=== PATIENT | female | born 1945 | race Caucasian/White ===

== ENCOUNTER → 2017-01-11 | Outpatient (CLI) | payer OTHER ==
--- NOTE | ~2017-01-11 | BD1 ---
[facility] A Service of [facility] RADIOLOGY TEXT RESULTS PATIENT: FILI RODAS LOCATION: [facility] : 45 UNIT #: [id number] AGE: [address]: Maria E Robertson MD SEX: F ORDER DR: [id number] [facility] [address] [facility] [place], [place] [address] [id number] O MR#: [id number] Acc #: [id number] NAME: FILI RODAS : 1945 SEX: F STUDY DATE/TIME: 01/11/2017 11:37 UNIT: [facility] ROOM: STUDY DESCRIPTION: BD Dexa Bone Dens 1+ Site Attending Physician: Maria E Robertson M.D. Referring Physician: Maria E Robertson M.D. Ordering Physician: Maria E Robertson M.D. Primary Care Physician: Maria E Robertson M.D. MEDICAL IMAGING REPORT This report is preliminary unless electronic signature is present EXAM DEXA scan 01/11/2017 HISTORY Status post menopause with no hormone replacement therapy. Osteopenia. Hypertension with blood pressure medication for 4 years. Thyroid medication levothyroxine use for 4 years. Family history of osteoporosis in mother. FINDINGS Bone mineral density in the lumbar spine from L1-L4 was 1.064 g/cm2 which is 0.2 standard deviations above the mean when compared to the young adult reference population which is within the range of normal. This is 2.3 standard deviations above the mean when compared to the age-matched population. Compared with 07/30/2013 there has been an increase in bone mineral density in the lumbar spine of 1.5%. Bone mineral density in the left femoral neck was 0.773 g/cm2 which is 0.7 standard deviations below the mean when compared to the young adult reference population which is within the range of normal. This is 1.2 standard deviations above the mean when compared to the age-matched population. Compared with 07/30/2013 there has been a decrease in bone mineral density in the left hip of 2.4%. Bone mineral density in the distal left forearm was 0.564 g per centimeter square which is 0.3 standard deviations below the mean when compared to the reference population which is within the range of normal. This is 1.8 standard deviations above the mean when compared to the age-matched population. Compared with 07/30/2013 there has been a decrease in bone mineral density in the left forearm of 6%. IMPRESSION Bone mineral density in the lumbar spine. The left hip and the left forearm within the range of normal. Compared with 07/30/2013 there has been an increase in bone mineral density in the lumbar spine and a decrease in bone mineral density in the left hip and left forearm. [facility] A Service of [facility] RADIOLOGY TEXT RESULTS PATIENT: FILI RODAS LOCATION: [facility] #: [id number] : 45 UNIT #: [id number] AGE: [address]: Maria E Robertson MD SEX: F ORDER DR: Dictated by... Jevon Verdugo M.D. THIS IS AN ELECTRONICALLY VERIFIED REPORT Jevon Verdugo M.D. at 01/12/2017 7:18 AM KRT/to TD: 01/11/2017 15:47 JOB #: [id number] MEDICAL IMAGING REPORT Page 1 of 1 COPY
== END | disposition home or self-care (01) ==
LOC: CWCC 01-05 11:30
DX: M81.0 Age-related osteoporosis without current pathological fracture (principal)
CPT/HCPCS: 77080